=== PATIENT | female | born 2000 | race Caucasian/White ===

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

== ENCOUNTER 2019-07-21 13:50 | Emergency (ER) | payer BC ==
[2019-07-21 14:03] VITALS: BP 122/76
--- NOTE | 2019-07-21 14:08 | UC ---
Complaint Female HPI - HPI Summary HPI Summary: She is a 19-year-old female presenting with boyfriend for a urinary tract infection symptoms 3 days. Patient notes frequency, urgency, burning. Notes fever and chills this morning. Denies blood in the urine. Denies abdominal pain and pelvic pressure. Denies nausea, vomiting, diarrhea. Denies flank pain. Notes that she took [facility] brand UTI medication yesterday without much relief. - History Of Current Complaint Chief Complaint: UCGU Stated Complaint: UTI SYMPTOMS Hx Obtained From: Patient Hx Last Menstrual Period: 12/07/17 Onset/Duration: Gradual Onset, Lasting Days Timing: Constant Severity Initially: Moderate Severity Currently: Moderate Pain Intensity: 6 - Allergies/Home Medications Allergies/Adverse Reactions: Allergies Allergy/AdvReac Type Severity Reaction Status Date / Time No Known Allergies Allergy Verified 07/21/19 14:03 Home Medications: Home Medications Fexofenadine/Pseudoephedrine [Pinky-D 24 Hour Tablet] 1 tab PO DAILY 07/21/19 [History Confirmed 07/21/19] Ibuprofen TAB* [Advil TAB*] 200 mg PO Q8H PRN 07/21/19 [History Confirmed ] PMH/Surg Hx/FS Hx/Imm Hx Previously Healthy: Yes - Surgical History Surgical History: None - Family History Known Family History: Positive: Non-Contributory - Social History Alcohol Use: Occasionally Substance Use Type: None Smoking Status (MU): Never Smoked Tobacco Review of Systems All Other Systems Reviewed And Are Negative: Yes Constitutional: Positive: Fever, Chills. Negative: Fatigue Respiratory: Positive: Negative. Negative: Shortness Of Breath Cardiovascular: Positive: Negative. Negative: Palpitations, Chest Pain Gastrointestinal: Positive: Negative. Negative: Abdominal Pain, Vomiting, Diarrhea, Nausea Genitourinary: Positive: Dysuria, Frequency, Urgency, Vaginal/Penile Burning. Negative: Hematuria, Vaginal/Penile Itching, Vaginal/Penile Discharge, Vaginal/ Penile Pain, Vaginal/Penile Tenderness, Ulceration/Lesion, Abnormal Bleeding Musculoskeletal: Positive: Negative Neurological: Negative: Headache Physical Exam Triage Information Reviewed: Yes Appearance: Well-Appearing, No Pain Distress, Well-Nourished Vital Signs: Initial Vital Signs Temp 100.4 F 07/21/19 13:59 Pulse 95 07/21/19 13:59 Resp 18 07/21/19 13:59 BP 122/76 07/21/19 13:59 Pulse Ox 99 07/21/19 13:59 Lab Results 07/21/19 Range/Units 14:11 POC Urine Color Yellow POC Urine Clarity Clear POC Urine pH 6.5 (5-9) POC Ur Specif Onset <= 1.005 L (1.010-1.030) POC Urine Protein Negative (Negative) POC Ur Glucose (UA) Negative (Negative) POC Urine Ketones Negative (Negative) POC Urine Blood 2+ A (Negative) POC Urine Nitrite Negative (Negative) POC Urine Bilirubin Negative (Negative) POC Urine Urobilinogen 0.2 (Negative) POC U Leukocyte Esteras 2+ A (Negative) Vital Signs Reviewed: Yes Eyes: Positive: Conjunctiva Clear ENT: Positive: Hearing grossly normal Neck exam: Normal Respiratory Exam: Normal Respiratory: Positive: Lungs clear, Normal breath sounds, No respiratory distress Cardiovascular Exam: Normal Cardiovascular: Positive: RRR Abdominal Exam: Normal Abdomen Description: Positive: Nontender, Soft. Negative: CVA Tenderness (R), CVA Tenderness (L), Distended, Guarding Neurological: Positive: Alert Psychological: Positive: Age Appropriate Behavior Complaint Female Dx - Course Course Of Treatment: Discussed with the patient to take Keflex as prescribed for treatment of UTI. Instructed her to take Tylenol and ibuprofen as directed for fever and pain relief. Instructed her to go to the emergency room if symptoms worsen including fever greater than 102, nausea, vomiting, back pain, and abdominal pain. Patient voiced understanding and agreed to the treatment plan. - Differential Dx/Diagnosis Provider Diagnosis: UTI (urinary tract infection), uncomplicated Discharge ED - Sign-Out/Discharge Documenting (check all that apply): Patient Departure All imaging exams completed and their final reports reviewed: No Studies - Discharge Plan Condition: Stable Disposition: HOME Prescriptions: Cephalexin CAP* [Keflex CAP*] 500 mg PO BID #14 cap Patient Education Materials: Urinary Tract Infection in Women (ED) Referrals: [facility] [Outside] - If Needed [facility] [Outside] - If Needed Additional Instructions: As discussed, take Keflex as prescribed for your UTI. Make sure you are staying hydrated. You may take Tylenol as directed for your fever. Go to the emergency room if you experience fever higher than 102, nausea, vomiting, back pain, or abdominal pain. - Billing Disposition and Condition Condition: STABLE Disposition: Home - Attestation Statements Provider Attestation: I was available for consult. This patient was seen by the SEN. The patient was not presented to, seen by, or examined by me. -Familia
== END 2019-07-21 14:32 | disposition home or self-care (01) ==
LOC: UCCORT 13:50
DX: N39.0 Urinary tract infection, site not specified (principal)
CPT/HCPCS: 81003; 87077; 87086; 87186; 99212; G0463

== ENCOUNTER 2019-12-18 10:17 | Emergency (ER) | payer BC ==
[2019-12-18 10:56] VITALS: BP 133/78
--- NOTE | 2019-12-18 11:37 | UC ---
Throat Pain/Nasal Sean HPI - HPI Summary HPI Summary: 19-year-old female presents with onset of sore throat last night. States this morning she woke up and noticed some white spots on her tonsil that she thought may be a tonsil stone. Denies fever, chills, ear pain, nasal congestion, dysphagia, cough, difficulty breathing, abdominal pain, nausea, or vomiting. - History of Current Complaint Chief Complaint: UCGeneralIllness Stated Complaint: SORE THROAT Time Seen by Provider: 12/18/19 11:18 Hx Obtained From: Patient Hx Last Menstrual Period: 12/11/19 Pain Intensity: 7 - Allergies/Home Medications Allergies/Adverse Reactions: Allergies Allergy/AdvReac Type Severity Reaction Status Date / Time No Known Allergies Allergy Verified 12/18/19 10:51 Home Medications: Home Medications Bcp 1 tab PO DAILY 12/17/18 [History Confirmed 12/18/19] Amoxicillin PO (*) [Amoxicillin 500 MG CAP*] 500 mg PO Q12H 10 Days #20 cap 07/29 [Rx] Ibuprofen TAB* [Advil TAB*] 400 mg PO ONCE PRN 12/18/19 [History Confirmed 12/17] PMH/Surg Hx/FS Hx/Imm Hx Previously Healthy: Yes - Denies significant PMH - Surgical History Surgical History: None - Family History Family History: Denies significant family medical history - Social History Occupation: Student Lives: Dormitory/Roommates Alcohol Use: Weekly Substance Use Type: None Smoking Status (MU): Never Smoked Tobacco Review of Systems All Other Systems Reviewed And Are Negative: Yes Constitutional: Negative: Fever, Chills Skin: Negative: Rash Eyes: Negative: Drainage, Eye Redness ENT: Positive: Sore Throat. Negative: Ear Ache, Nasal Discharge, Sinus Congestion, Sinus Pain/Tenderness Respiratory: Negative: Shortness Of Breath, Cough Cardiovascular: Negative: Chest Pain Gastrointestinal: Negative: Abdominal Pain, Vomiting, Nausea Genitourinary: Positive: Negative Musculoskeletal: Positive: Negative Neurological/Mental Status: Positive: Negative Is Patient Immunocompromised?: No Physical Exam - Summary Physical Exam Summary: GENERAL APPEARANCE: Well developed, well nourished, alert and cooperative, and appears to be in no acute distress. EYES: Conjunctiva clear. No drainage. EARS: External auditory canals and tympanic membranes clear, hearing grossly intact. NOSE: No nasal discharge. THROAT: Pharyngeal erythema. 2+ tonsils with exudate. Uvula midline. NECK: Neck supple, non-tender with mild anterior cervical lymphadenopathy. CARDIAC: Normal S1 and S2. No S3, S4 or murmurs. Rhythm is regular. There is no peripheral edema, cyanosis or pallor. Extremities are warm and well perfused. Capillary refill is less than 2 seconds. Peripheral pulses intact. LUNGS: Clear to auscultation without rales, rhonchi, wheezing or diminished breath sounds. ABDOMEN: Positive bowel sounds. Soft, nondistended, nontender. No guarding or rebound. No masses or hepatosplenomegally. MUSKULOSKELETAL: ROM intact to all extremities. No joint erythema or tenderness. Normal muscular development. Normal gait. SKIN: Skin normal color, texture and turgor with no lesions or eruptions. Triage Information Reviewed: Yes Vital Signs: Initial Vital Signs Temp 99.3 F 12/18/19 10:52 Pulse 111 12/18/19 10:52 Resp 16 12/18/19 10:52 BP 133/78 12/18/19 10:52 Pulse Ox 99 12/18/19 10:52 Vital Signs Reviewed: Yes Throat Pain/Nasal Course/Dx - Course Course Of Treatment: 19-year-old female presents with onset of sore throat last night. States this morning she woke up and noticed some white spots on her tonsil that she thought may be a tonsil stone. Denies fever, chills, ear pain, nasal congestion, dysphagia, cough, difficulty breathing, abdominal pain, nausea, or vomiting. Afebrile. Mildly tachycardic otherwise vital signs stable. Patient had no nasal congestion, normal TMs, pharyngeal erythema, 2+ tonsils with exudate, mild anterior cervical lymphadenopathy, and otherwise unremarkable exam. Rapid strep test was positive. Reviewed results with the patient. Will treat for strep pharyngitis with amoxicillin 500 mg twice a day 10 days as well as recommend symptomatic treatment. Patient is to return here or follow up with the [facility] in 3-5 days if symptoms are not improving. Anticipatory guidance and warning symptoms were reviewed with the patient. Verbalizes understanding and agrees with plan of care. - Differential Dx/Diagnosis Differential Diagnosis/HQI/PQRI: Mononucleosis, Peritonsillar Abscess, Pharyngitis, Sinusitis, Tonsillitis, URI Provider Diagnosis: Strep pharyngitis Discharge ED - Sign-Out/Discharge Documenting (check all that apply): Patient Departure All imaging exams completed and their final reports reviewed: No Studies - Discharge Plan Condition: Stable Disposition: HOME Prescriptions: Amoxicillin PO (*) [Amoxicillin 500 MG CAP*] 500 mg PO Q12H 10 Days #20 cap Patient Education Materials: Strep Throat (ED) Referrals: No Primary Care Phys,NOPCP [Primary Care Provider] - Additional Instructions: Your rapid strep test in the clinic today was positive. We will start you on an antibiotic to treat the infection. Start amoxicillin 500 mg 1 tab twice a day for 10 days. Be sure to finish the entire course even if feeling better. After you have been on antibiotics for 3 days, throw out your toothbrush and replace with a new one to prevent reinfection. Drink plenty of fluids to avoid dehydration especially if you are running any fever. Use salt water gargles several times a day. Take over the counter acetaminophen (Tylenol) or ibuprofen (Advil, Motrin) according to directions as needed for pain or fever. You may also use Chloraseptic spray or Cepacol lonzenges according to directions which contain a numbing medication and can provide some temporary relief from your sore throat. Return here or follow up with the [facility] in 3-5 days if symptoms do not improve. Seek immediate medical attention in the emergency room if you have fever greater than 100.5 F despite taking acetaminophen or ibuprofen, are unable to swallow or develop drooling, are unable to open your mouth fully, are unable to eat or drink, have pain that is not relieved with over the counter pain medication, have any difficulty breathing, or any worsening of symptoms. - Billing Disposition and Condition Condition: STABLE Disposition: Home
== END 2019-12-18 12:11 | disposition home or self-care (01) ==
LOC: UCCORT 10:17
DX: J02.0 Streptococcal pharyngitis (principal)
CPT/HCPCS: 87651; 99212; G0463